=== PATIENT | female | born 1985 | race American Indian/Alaskan Native ===

== ENCOUNTER 2019-01-23 06:24 | Inpatient (IN) | payer OTHER ==
[2019-01-23] MEDS ORDERED: PITOCin/NS 20 UNIT/1000ML DRIP 20,000 MILLIUNITS/1,000 ML BAG IV ONE (06:30)
[2019-01-23] MEDS ORDERED: LACTATED RINGERS 1,000 ML ONE (06:31)
[2019-01-23] MEDS ORDERED: AMPICILLIN/NS 2 GM/100 ML 2 GM/100 ML BAG IV ONE ×2 (06:31→06:43)
[2019-01-23] MEDS ORDERED: MINERAL OIL PO PRN (06:43)
[2019-01-23] MEDS ORDERED: BRETHINE SUB-Q PRN (06:43)
[2019-01-23] MEDS ORDERED: XYLOCAINE 2% INFILTRATI ONE (06:43)
[2019-01-23] MEDS ORDERED: BRETHINE IVP PRN (06:43)
[2019-01-23] MEDS ORDERED: LACTATED RINGERS 1,000 ML IV SCH (07:00)
[2019-01-23] MEDS ORDERED: PITOCin/NS 20 UNIT/1000ML DRIP 20 UNITS/1,000 ML BAG IV SCH (07:00)
--- NOTE | 2019-01-23 07:15 | Procedure Note ---
OB Delivery Note - Delivery Date of Delivery: 01/23/19 Surgeon: LIZANDRO WALKER Estimated blood loss: 300cc - Vaginal Delivery presentation: vertex Delivery position: OA Intrapartum events: precipitous labor- <3hr Delivery monitor: external FHT, external uterine Route of delivery: Delivery placenta: spontaneous Delivery cord: 3 umbilical vessels Delivery laceration: none Anesthesia: none Delivery comments: Viable male delivered precipitously over intact perineum this morning. apgars 8,9. Placenta delivered spontaneously and intact with 3vc. No lacerations. Weight (pending while infant is under warmer to raise body temp). - A at 1 minute: 8 (5 pounds 5 ounces) at 5 minutes: 9 Gender: Male
--- NOTE | 2019-01-23 07:20 | History and Physical Report ---
History of Present Illness Date of examination: 01/23/19 Date of admission: 01/23/19 06:24 Chief complaint: I'm in labor History of present illness: Pt is a 33 year old who presents with EDC at 01/23/19 at 40 weeks gestation and anterior lip. Pt received care at [facility]. records are not available for review. Per patient she has had no issues with this Past History Past Medical History: no pertinent history - Obstetrical History Expected Date of Delivery: 01/23/19 Actual Gestation: 40 Week(s) 0 Day(s) : 4 Para: 2 Medications and Allergies Allergies Allergy/AdvReac Type Severity Reaction Status Date / Time No Known Allergies Allergy Verified 01/23/19 06:39 Active Meds: Active Medications Ephedrine Sulfate (Ephedrine Sulfate) 10 mg IV Q2M PRN PRN Reason: Hypotension Oxytocin/Sodium Chloride (Pitocin/Ns 20 Unit/1000ml Drip) 20 units in 1,000 mls @ 125 mls/hr IV DIRECT DANIAL Lactated Ringer's (Lactated Ringers) 1,000 mls @ 125 mls/hr IV DIRECT DANIAL Ampicillin Sodium (Ampicillin/Ns 2 Gm/100 Ml) 2 gm in 100 mls @ 100 mls/hr IV ONCE ONE; Protocol Stop: 01/23/19 07:42 Ampicillin Sodium (Ampicillin/Ns 1 Gm/50 Ml) 1 gm in 50 mls @ 100 mls/hr IV Q4HR DANIAL; Protocol Mineral Oil (Mineral Oil) 30 ml PO QHS PRN PRN Reason: Constipation Terbutaline Sulfate (Brethine) 0.25 mg SUB-Q ONCE PRN PRN Reason: Hyperstimulation/Hypertonicity Terbutaline Sulfate (Brethine) 0.25 mg IVP ONCE PRN PRN Reason: Hyperstimulation/Hypertonicity Review of Systems All systems: negative Genitourinary: contractions - Vital Signs Vital signs: Vital Signs Pulse BP 86 109/63 01/23/19 07:04 01/23/19 07:04 Temp Pulse Resp BP Pulse Ox 97.5 F L 86 109/63 01/23/19 07:12 01/23/19 07:12 01/23/19 07:04 - Physical Exam Breasts: Cardiovascular: Regular rate, Normal S1, Normal S2 Lungs: Positive: Clear to auscultation, Normal air movement Abdomen: Positive: normal appearance, soft, normal bowel sounds. Negative: distention, tenderness Vulva: both: normal Vagina: Positive: normal moisture. Negative: discharge Cervix: Negative: lesion, discharge Uterus: Positive: normal size, normal contour Adnexa: both: normal Anus/Rectum: Positive: normal perianal skin, heme negative. Negative: rectal mass, hemorrhoids Extremities: Deep Tendon Reflex Grade: Normal +2 - Obstetrical Cervical Dilatation: 10 Cervical Effacement Percentage: 100 Uterine Contraction Pattern: Regular Results All other labs normal. Assessment and Plan IUP in active labor at term. Anticipate .
[2019-01-23 07:25] LABS: Hematocrit 35.6 % (30.3-42.9); Hemoglobin 12.3 gm/dl (10.1-14.3); Mean Corpuscular HGB Conc 35 % (30-34); Mean Corpuscular Volume 87 fl (79-97); Platelet Count 142 K/mm3 (140-440); Red Blood Count 4.09 M/mm3 (3.65-5.03); Red Cell Distribution Width 13.6 % (13.2-15.2)
[2019-01-23] MEDS ORDERED: AMPICILLIN/NS 1 GM/50 ML 1 GM/50 ML BAG IV SCH (10:43)
[2019-01-23] MEDS ORDERED: LANSINOH TP PRN (11:25)
[2019-01-23] MEDS ORDERED: PRENATAL VITAMIN PO SCH (11:25)
[2019-01-23] MEDS ORDERED: TYLENOL PO PRN (11:25)
[2019-01-23] MEDS ORDERED: ZOFRAN IV PRN (11:25)
[2019-01-23] MEDS ORDERED: DULCOLAX PR PRN (11:25)
[2019-01-23] MEDS ORDERED: PHENERGAN PR PRN (11:25)
[2019-01-23] MEDS ORDERED: MILK OF MAGNESIA PO PRN (11:25)
[2019-01-23] MEDS ORDERED: TUCKS PAD TP PRN (11:25)
[2019-01-23] MEDS ORDERED: PHENERGAN PO PRN (11:25)
[2019-01-23] MEDS ORDERED: SODIUM CHLORIDE FLUSH SYRINGE 10 ML IV NR (11:25)
[2019-01-23] MEDS ORDERED: BENADRYL PO PRN (11:25)
[2019-01-23] MEDS: IBUPROFEN PO SCH ×2 (15:46→22:32)
[2019-01-23 21:48] LABS: Hematocrit 32.1 % (30.3-42.9); Hemoglobin 10.7 gm/dl (10.1-14.3)
[2019-01-23] MEDS: COLACE PO SCH (21:52)
[2019-01-23] MEDS: NORCO 5/325 PO PRN (21:53)
[2019-01-24] MEDS: IBUPROFEN PO SCH ×3 (06:51→18:27)
--- NOTE | 2019-01-24 08:30 | Progress Note ---
Assessment and Plan - Patient Problems (1) Active labor at term Current Visit: Yes Status: Acute Plan to address problem: patient doing well consider discharge today Subjective - Subjective Date of service: 01/24/19 Interval history: Patient reports having uterine cramping with . Tolerating regular diet. Lochia is decreasing Patient reports: appetite normal, voiding normally [place]: doing well, nursing well Objective - Vital Signs Latest vital signs: Vital Signs Temp Pulse Resp BP BP Pulse Ox 01/24/19 01:11 98.2 F 76 18 97/60 97 01/23/19 23:32 18 01/23/19 22:53 18 01/23/19 22:32 18 01/23/19 21:53 18 01/23/19 17:56 98.0 F 72 16 111/64 97 01/23/19 09:20 97.9 F 74 18 122/77 98 Intake and Output 01/23/19 01/24/19 01/24/19 22:59 06:59 14:59 Intake Total 480 360 Balance 480 360 Intake: Intake, Free Water 480 360 Other: # Voids Void 3 2 - Exam Abdomen: Present: normal appearance, soft Uterus: Present: normal, firm
--- NOTE | 2019-01-24 08:33 | Discharge Summary ---
Providers - Providers Date of Admission: 01/23/19 06:24 Date of discharge: 01/24/19 Attending physician: CATHERINE PORTER Primary care physician: CATHERINE PORTER Hospitalization Reason for admission: active labor Delivery: Discharge diagnosis: IUP at term delivered [place] baby: female Hospital course: Patient admitted in active labor. . uncomplicated Condition at discharge: Good Disposition: DC-01 TO HOME OR SELFCARE - Discharge Diagnoses (1) Active labor at term Status: Acute Plan - Discharge Medications Prescriptions: Ibuprofen [Motrin] 800 mg PO Q8HR PRN #60 tablet PRN Reason: Pain, Mild (1-3) HYDROcodone/APAP 5-325 [[place] 5/325] 1 each PO Q6HR PRN #20 tablet PRN Reason: Pain - Provider Discharge Summary Activity: no sex for 6 weeks, no heavy lifting 4 weeks, no strenuous exercise Diet: routine Instructions: routine Additional instructions: [] Smoking cessation referral if applicable(refer to patient education folder for contact #) [] Refer to [facility] Booklet Call your doctor immediately for: * Fever > 100.5 * Heavy vaginal bleeding ( >1 pad per hour) * Severe persistent headache * Shortness of breath * Reddened, hot, painful area to leg or breast * schedule visit in 4 weeks - Follow up plan
[2019-01-24] MEDS: NORCO 5/325 PO PRN ×2 (08:59→23:13)
[2019-01-24] MEDS: COLACE PO SCH ×2 (10:14→21:28)
[2019-01-25] MEDS: IBUPROFEN PO SCH ×2 (01:03→06:30)
--- NOTE | 2019-01-25 08:16 | Progress Note ---
Assessment and Plan A: 1. PPD2, stable for discharge 2. difficulty 3. Periumbilical rash P: 1. Discharge to home today 2. Support provided, ordered consult 3. Hydrocortisone for rash Subjective - Subjective Date of service: 01/25/19 Principal diagnosis: PPD2 Interval history: Pt is PPD2 s/p of viable infant. She is with some difficulty, and reports a new onset pruritic rash below her umbilicus. Patient reports: appetite normal, voiding normally, pain well controlled, ambulating normally : doing well, nursing well (Some difficulty with latch, painful nipples) Objective - Vital Signs Latest vital signs: Vital Signs Temp Pulse Resp BP BP Pulse Ox 01/25/19 00:32 98.3 F 79 17 104/67 97 01/25/19 00:13 18 01/24/19 23:13 18 01/24/19 16:45 98.2 F 71 18 103/68 01/24/19 08:15 98.6 F 67 18 98/66 Intake and Output 01/24/19 01/25/19 01/25/19 23:59 07:59 15:59 Intake Total 240 720 Balance 240 720 Intake: Oral 240 720 Other: Total, Intake Amount 240 720 # Voids Void 3 - Exam Breasts: Present: normal, (Functional lip tie noted on ), nipple abnormal (irritated) Cardiovascular: Present: Regular rate, Normal S1, Normal S2, No murmurs Lungs: Present: Clear to auscultation, Normal air movement Abdomen: Present: normal appearance, soft Uterus: Present: normal, firm, fundal height below umbilicus Extremities: Present: normal
[2019-01-25] MEDS ORDERED: HYDROCORTISONE CR TP PRN (08:30)
[2019-01-25 09:19] VITALS: BP 93/54
== END 2019-01-25 13:41 | disposition home or self-care (01) | DRG 774 ==
LOC: LD 06:24 → UNDOADMIN 06:24 → LD 06:49 → OB 09:18 → LD 09:18
PROVIDERS: ADMIT Obstetrics & Gynecology; ATTEND Obstetrics & Gynecology
PROC: 10E0XZZ Delivery of Products of Conception, External Approach (ICD-10-PCS; principal; 2019-01-23)
DX: O62.3 Precipitate labor (principal); O90.89 Other complications of the puerperium, not elsewhere classified; R21 Rash and other nonspecific skin eruption; Z3A.40 40 weeks gestation of pregnancy; Z37.0 Single live birth
CPT/HCPCS: 36415; 85014; 85018; 85027; 86592; 86850; 86900; 86901; G0378; A6250; J0290; J2590; J7120